=== PATIENT | female | born 1955 | race Caucasian/White ===

== ENCOUNTER → 2025-02-20 08:28 | Outpatient (BNV) | payer MEDICARE, SELFPAY | PROVIDERS: Visit Provider Student in an Organized Health Care Education/Training Program | DX: M17.12 Unilateral primary osteoarthritis, left knee (principal) | CPT/HCPCS: 73562 ==

== ENCOUNTER 2025-02-20 08:47 | Outpatient (AMB) | payer MEDICARE, SELFPAY ==
--- NOTE | 2025-02-20 08:57 | MHC.OFFVIS ---
Vital Signs 02/20/25 08:59 Height 5 ft 8 in Weight 145 lb BMI 22.0 Intake Visit Reasons: Left knee pain and giving way Intake Note: Raquel is a 69 year old who presents with complaints of progressively worsening left knee pain and giving way. The patient describes her pain as sharp in nature. Most of the pain is along the medial aspect of her knee. The patient states that she twisted her knee several months ago while playing pickleball. Since that time her symptoms have gotten worse. She has failed the last 6 weeks of conservative treatment which has included Tylenol, ibuprofen, Voltaren gel, ice and rest. She states that her left knee will give out several times per day. Allergies No Known Allergies Allergy (Verified 02/20/25 08:59) Medication List - Last Reconciled 02/20/25 by Dylon uQinn MD albuterol sulfate 90 mcg/actuation 1 puff inhalation Q4H PRN atorvastatin 20 mg PO DAILY omeprazole 20 mg PO DAILY PFSH Social History (Updated 02/20/25 @ 09:01 by DAYANA Alberto) Patient Tobacco Use Status: Never used Tobacco Current occupational status: retired Current occupation: rt handed Physical Exam Vital Signs: BMI result Body Mass Index 22.0 Const Other: Well-nourished well-developed very friendly female awake alert and oriented x3 in no acute distress Extrem Other: Bilateral lower extremity examination shows good capillary refill, no skin lesions noted, normal sensation light touch Left knee examination shows a minimal effusion, minimal crepitus with range of motion, tenderness along her medial joint line, positive Gurdeep's test, no instability Results Reviewed Results Reviewed: Standing full weight-bearing x-rays of the patient's left knee show mild diffuse joint space narrowing, no acute bony abnormalities Assessment & Plan Assessment & Plan (1) Tear of medial meniscus of left knee: Code(s): S83.242A - Other tear of medial meniscus, current injury, left knee, initial encounter Category: Medical Plan Ms. Crews presents with progressively worsening left knee pain and mechanical symptoms most likely due to a medial meniscus tear. I did give her a prescription for a Medrol Dosepak. I also gave her a prescription for Celebrex which she will take as needed once the Dosepak is completed. I will also send the patient for an MRI of her left knee to further evaluate the status of her medial meniscus. I will see her back once the MRI is completed to discuss the findings and treatment options. Feel free to call me at any time should questions regarding her orthopedic management arise. I spent 20 minutes in reviewing the patient's records and imaging studies, seeing the patient and documenting in the medical record. Orders: Orders XR knee LT 3V Today M25.562 - Pain in left knee MR knee LT wo con Today S83.242A - Other tear of medial meniscus, current injury, left knee, initial encounter Medications: New celecoxib (Celebrex) 200 mg PO DAILY 30 caps 3RF methylprednisolone (Medrol (Pedro)) PO PER PKG DIR 21 ea 0RF Coding Level of Care Code New Pt Level 3 (32359) Complex EM visit Add On G2211 Diagnoses Tear of medial meniscus of left knee S83.242A
[2025-02-20 08:59] VITALS: BMI 22.0
== END 2025-02-20 09:35 | disposition home or self-care (01) ==
LOC: HO.HOS 08:48
PROVIDERS: Visit Provider Orthopaedic Surgery
DX: S83.242A Other tear of medial meniscus, current injury, left knee, initial encounter (principal)
CPT/HCPCS: 99203; G2211

== ENCOUNTER 2025-02-20 09:51 | Outpatient (REF) | payer MEDICARE, SELFPAY ==
--- NOTE | ~2025-02-20 | XR_ITS ---
CLINICAL HISTORY: M25.562 - Pain in left knee 3 view left knee Comparison: None Findings: Bones intact. No dislocations. Moderate degenerative disease with medial joint space narrowing and tricompartmental spurring. No joint effusion. No radiopaque foreign body. IMPRESSION: 1. No acute findings. Moderate DJD. This document has been electronically signed by: Brandi Rader MD on 02/20/2025 22:19:12
== END 2025-02-20 09:52 | disposition home or self-care (01) ==
LOC: HO.HOSX 09:51
PROVIDERS: Visit Provider Orthopaedic Surgery
DX: M25.562 Pain in left knee (principal)
CPT/HCPCS: 73562; 99202

== ENCOUNTER → 2025-03-20 19:33 | Outpatient (BNV) | payer MEDICARE, SELFPAY | PROVIDERS: PCP Internal Medicine; Visit Provider Specialist | DX: M23.322 Other meniscus derangements, posterior horn of medial meniscus, left knee (principal) | CPT/HCPCS: 73721 ==

== ENCOUNTER 2025-03-20 19:56 | Outpatient (REF) | payer MEDICARE, SELFPAY ==
--- NOTE | ~2025-03-20 | MR_ITS ---
CLINICAL HISTORY: S83.242A - Other tear of medial meniscus, current injury, left knee, ini... MR left knee without gadolinium Comparison: 02/20/2025 Findings: No fractures. No pathologic bone lesions. No joint effusion. 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 No tears of the cruciate or collateral ligaments. Patellar retinacula and iliotibial band are intact. No tears of the quadriceps, patellar, popliteus, or flexor tendons. There is a complex pattern vertical and horizontal tear involving the posterior horn of the medial meniscus. The menisci are otherwise intact. IMPRESSION: 1. Posterior horn medial meniscal tear. 2. Ramirez's cyst This document has been electronically signed by: Ashish Decker MD on 03/22/2025 08:53:09
== END 2025-03-20 19:57 | disposition home or self-care (01) ==
LOC: HO.MRI 19:56
PROVIDERS: PCP Internal Medicine; Visit Provider Orthopaedic Surgery
DX: S83.242A Other tear of medial meniscus, current injury, left knee, initial encounter (principal)
CPT/HCPCS: 73721

== ENCOUNTER 2025-03-28 13:10 | Outpatient (AMB) | payer MEDICARE, SELFPAY ==
--- NOTE | 2025-03-28 13:13 | A.OFFVIS_ITS ---
Vital Signs 03/28/25 13:16 Height 5 ft 8 in Weight 145 lb BMI 22.0 BP 118/80 Blood Pressure Location Lt brachial Pulse 72 Pulse Source Pulse Oximeter Pulse Oximetry (%) 96 Oxygen Delivery Method Room Air Intake Visit Reasons: OV-Left knee MRI review Intake Note: Raquel is a 69 year old who presents with complaints of progressively worsening left knee pain and giving way. The patient describes her pain as sharp in nature. Most of the pain is along the medial aspect of her knee. The patient states that she twisted her knee several months ago while playing pickleball. Since that time her symptoms have gotten worse. She has failed the last 6 weeks of conservative treatment which has included Tylenol, ibuprofen, Voltaren gel, ice and rest. She states that her left knee will give out several times per day. Allergies No Known Allergies Allergy (Verified 03/28/25 13:17) Medication List - Last Reconciled 03/28/25 by Dylon Quinn MD albuterol sulfate 90 mcg/actuation 1 puff inhalation Q4H PRN atorvastatin 20 mg PO DAILY celecoxib (Celebrex) 200 mg PO DAILY methylprednisolone (Medrol (Pedro)) PO PER PKG DIR omeprazole 20 mg PO DAILY PFSH Social History Patient Tobacco Use Status: Never used Tobacco Current occupational status: retired Current occupation: rt handed Physical Exam Vital Signs: Last Vital Signs Pulse 72 03/28/25 13:16 BP 118/80 03/28/25 13:16 Pulse Ox 96 03/28/25 13:16 Oxygen Delivery Method Room Air 03/28/25 13:16 BMI result Body Mass Index 22.0 Const Other: Well-nourished well-developed very friendly female awake alert and oriented x3 in no acute distress Extrem Other: Left knee examination shows a minimal effusion, mild crepitus with range of motion, tenderness along her medial joint line, positive Gurdeep's test, no instability Results Reviewed Results Reviewed: Standing full weight-bearing x-rays of the patient's left knee show mild diffuse joint space narrowing, no acute bony abnormalities MRI of the patient's left knee shows mild diffuse degenerative changes as well as a tear of the medial meniscus Assessment & Plan Assessment & Plan (1) Tear of medial meniscus of left knee: Code(s): S83.242A - Other tear of medial meniscus, current injury, left knee, initial e ncounter Category: Medical Plan Mrs. Crews presents with left knee pain and mechanical symptoms due to early degenerative joint disease as well as a medial meniscus tear. I had a lengthy discussion with the patient regarding the treatment options. At this point she appears to be failing continued non operative treatments. The risks and benefits of left knee arthroscopic surgery were discussed at length with the patient. The patient is considering undergoing surgery later this year. She will contact my office to pick a surgery date if she chooses to do so. Surgery will involve left knee arthroscopic partial medial meniscectomy. The patient does understand that she may not get 100% relief of her symptoms depending on the severity of her degenerative changes. The patient will follow-up as instructed. I spent 22 minutes in reviewing the patient's records and imaging studies, seeing the patient and documenting in the medical record. Coding Level of Care Code Est Pt Level 3 (92317) Complex EM visit Add On G2211 Diagnoses Tear of medial meniscus of left knee S83.242A
[2025-03-28 13:16] VITALS: BP 118/80; PULSE 72; O2SAT 96; BMI 22.0
== END 2025-03-28 13:35 | disposition home or self-care (01) ==
LOC: HO.HOS 13:11
PROVIDERS: Visit Provider Orthopaedic Surgery
DX: S83.242A Other tear of medial meniscus, current injury, left knee, initial encounter (principal)
CPT/HCPCS: 99213; G2211

== ENCOUNTER → 2025-03-28 13:10 | Outpatient (BNVA) | payer MEDICARE, SELFPAY | PROVIDERS: Visit Provider Orthopaedic Surgery | DX: S83.242A Other tear of medial meniscus, current injury, left knee, initial encounter (principal) | CPT/HCPCS: 99212 ==